=== PATIENT | male | born 1955 | race Caucasian/White ===

== ENCOUNTER 2016-05-07 19:49 | Inpatient (IN) | payer SELFPAY ==
[~2016-05-07] VITALS: Ht 180.3 cm; Wt 53.6 kg
--- NOTE | 2016-05-07 20:27 | PHYS DOC ---
Past Medical History Past Medical History: P.U.D. Additional Past Surgical Histo: for ulcer at age 20 Adult General Chief Complaint Chief Complaint: CHEST PAIN HPI HPI Patient is a 60 year old male who presents with chest pain. Patient was reportedly pulled over by police and then complained of chest pain. On arrival to ED patient reports he is no longer having chest pain. He has been having episodes of chest pain intermittently over the past year that he describes as a lower substernal aching pain. Also has been having episodes of lightheadedness and SOB, although not at this time. No clear mitigating factors. He has not taken anything for symptoms prior to arrival. Patient does admit to drinking 4- 5 beers today. He says he has not seen a doctor in 30 years. Review of Systems Review of Systems Constitutional: Intermittent lightheadedness (not at this time). Denies fever or chills Eyes: Denies change in visual acuity or eye pain HENT: Denies nasal congestion or sore throat Respiratory: Intermittent shortness of breath (not at this time) Cardiovascular: Intermittent chest pain (none at this time) GI: Denies abdominal pain, nausea, vomiting, bloody stools or diarrhea : Denies dysuria Musculoskeletal: Denies back pain or joint pain Integument: Denies rash or skin lesions Neurologic: Denies headache, focal weakness or sensory changes Current Medications Current Medications Current Medications Medications (Trade) Dose Ordered Sig/Polo Start Time Stop Time Status Last Admin Dose Admin Aspirin 324 mg 324 mg 1X ONCE 05/07/16 21:30 05/07/16 21:31 DC 05/07/16 21:14 324 MG Multivitamins/ Minerals/Folic Acid/Thiamine HCl/ Dextrose/Lactated Ringer's (Infuvite Adult/ Iv D5%-Lr) 1,011.2 ml @ 1,000 mls/ hr 1X ONCE 05/07/16 21:30 05/07/16 22:30 DC 05/07/16 21:15 1,000 MLS/HR Allergies Allergies Allergies Coded Allergies Type Severity Reaction Last Updated Verified No Known Drug Allergies 05/07/16 No Physical Exam Physical Exam Constitutional: Well developed, disheveled, poor hygiene, no acute distress, non -toxic appearance HENT: Normocephalic, atraumatic, bilateral external ears normal Eyes: EOMI, conjunctiva normal, no discharge Neck: Normal range of motion, no stridor Cardiovascular: Heart rate normal, regular rhythm, no murmur Lungs & Thorax: Bilateral breath sounds clear to auscultation Abdomen: Bowel sounds normal, soft, non-distended, no TTP Rectal: No gross blood Skin: Warm, dry, no erythema, no rash Extremities: No obvious deformity, no edema Neurologic: Alert and oriented X 3, no gross deficits noted Current Patient Data Vital Signs Vital Signs Date Time Temp Pulse Resp B/P Pulse Ox O2 Delivery O2 Flow Rate FiO2 05/07/16 21:40 62 24 111/58 97 Room Air 05/07/16 19:55 97.5 97.5 Lab Values Laboratory Tests Test 05/07/16 20:13 05/07/16 21:35 White Blood Count 6.8x10^3/uL (4.0-11.0) Red Blood Count 4.26x10^6/uL (4.30-5.70) L Hemoglobin 7.0g/dL (13.0-17.5) *L Hematocrit 25.0% (39.0-53.0) L Mean Corpuscular Volume 59fL (79-100) L Mean Corpuscular Hemoglobin 16pg (25-35) L Mean Corpuscular Hemoglobin Concent 28g/dL (31-37) L Red Cell Distribution Width 19.6% (11.5-14.5) H Platelet Count 240x10^3/uL (140-400) Neutrophils (%) (Auto) 49% (31-73) Lymphocytes (%) (Auto) 41% (24-48) Monocytes (%) (Auto) 7% (0-9) Eosinophils (%) (Auto) 2% (0-3) Basophils (%) (Auto) 1% (0-3) Neutrophils # (Auto) 3.3x10^3uL (1.8-7.7) Lymphocytes # (Auto) 2.8x10^3/uL (1.0-4.8) Monocytes # (Auto) 0.5x10^3/uL (0.0-1.1) Eosinophils # (Auto) 0.1x10^3/uL (0.0-0.7) Basophils # (Auto) 0.1x10^3/uL (0.0-0.2) Platelet Estimate Adequate (ADEQUATE) Hypochromasia Marked Poikilocytosis Slight Anisocytosis Slight Microcytosis Marked Tear Drop Cells Occ Ovalocytes Occ Prothrombin Time 14.1SEC (11.7-14.0) H Prothrombin Time INR 1.2 (0.8-1.1) H PTT 32SEC (24-38) Sodium Level 141mmol/L (136-145) Potassium Level 3.8mmol/L (3.5-5.1) Chloride Level 103mmol/L (98-107) Carbon Dioxide Level 26mmol/L (21-32) Anion Gap 12 (6-14) Blood Urea Nitrogen 11mg/dL (8-26) Creatinine 0.8mg/dL (0.7-1.3) Estimated GFR (Cockcroft-Gault) 99.3 Glucose Level 73mg/dL (70-99) Calcium Level 8.4mg/dL (8.5-10.1) L Total Bilirubin 0.5mg/dL (0.2-1.0) Direct Bilirubin 0.1mg/dL (0.0-0.2) Aspartate Amino Transferase (AST) 24U/L (15-37) Alanine Aminotransferase (ALT) 11U/L (16-63) L Alkaline Phosphatase 119U/L (46-116) H Troponin I Quantitative < 0.017ng/mL (0.000-0.055) Total Protein 7.6g/dL (6.4-8.2) Albumin 3.9g/dL (3.4-5.0) Stool Occult Blood Negative (NEG) Laboratory Tests 05/07/16 20:13 Laboratory Tests 05/07/16 20:13 EKG EKG EKG (my read): sinus rhythm, rate 59, normal axis, intervals wnl, nonspecific ST changes, LVH Radiology/Procedures Radiology/Procedures CXR (my read): No acute abnormality Course & Med Decision Making Course & Med Decision Making Pertinent Labs and Imaging studies reviewed. (See chart for details) Patient is 60 year old male who presents with chest pain. Will obtain EKG, CXR, labs to evaluate. Dose of ASA ordered. Nothing given for pain as he is not having pain at this time. EKG and CXR ok per my read. Labs notable for marked anemia; hgb 7.0, MCV 59. Discussed results with patient. As he has been intermittently symptomatic will go ahead and transfuse. I discussed this with patient who is agreeable; consent form signed and placed on chart. 2 units pRBCs ordered. Rectal exam performed, no gross blood, fecal occult negative. Discussed with Dr. Chen, will admit under her care for further evaluation and treatment. Dragon Disclaimer Dragon Disclaimer This electronic medical record was generated, in whole or in part, using a voice recognition dictation system. Departure Departure Impression: Primary Impression: Anemia Additional Impressions: Chest pain SOB (shortness of breath) Lightheaded Disposition: ADMITTED INPATIENT Admitting Physician: Diana Chen Condition: STABLE Problem Qualifiers MARLON KOVACS MD May 07, 2016 20:27
[2016-05-07 20:34] LABS: BASO # 0.1 x10^3/uL (0.0-0.2); BASO % 1 % (0-3); EOS % 2 % (0-3); LYMPH # 2.8 x10^3/uL (1.0-4.8); LYMPH % 41 % (24-48); MEAN CORPUSCULAR HEMOGLOBIN 16 pg (25-35); MEAN CORPUSCULAR HGB CONC 28 g/dL (31-37); MEAN CORPUSCULAR VOLUME 59 fL (79-100); MONO % 7 % (0-9); NEUT % 49 % (31-73); PLATELET COUNT 240 x10^3/uL (140-400); RED BLOOD COUNT 4.26 x10^6/uL (4.30-5.70); RED CELL DISTRIBUTION WIDTH 19.6 % (11.5-14.5); WHITE BLOOD COUNT 6.8 x10^3/uL (4.0-11.0)
[2016-05-07 20:46] LABS: CALCIUM 8.4 mg/dL (8.5-10.1); CREATININE 0.8 mg/dL (0.7-1.3); GFR 99.3; POTASSIUM 3.8 mmol/L (3.5-5.1)
[2016-05-07 20:51] LABS: ALBUMIN 3.9 g/dL (3.4-5.0); DIRECT BILIRUBIN 0.1 mg/dL (0.0-0.2); TOTAL BILIRUBIN 0.5 mg/dL (0.2-1.0); TOTAL PROTEIN 7.6 g/dL (6.4-8.2)
[2016-05-07 21:19] LABS: ANISOCYTOSIS SLIGHT; HYPOCHROMIA MARKED; MICROCYTOSIS MARKED; PLT ESTIMATE ADEQUATE (ADEQUATE); POIKILOCYTOSIS SLIGHT
[2016-05-07 21:20] LABS: OVALOCYTES OCC; TEAR DROP CELLS OCC
[2016-05-07] MEDS ORDERED: ASPIRIN 81 MG TAB.CHEW PO ONE (21:30)
[2016-05-07] MEDS ORDERED: MVI, ADULT NO.4 WITH VIT K 10 ML, FOLIC ACID 1 MG, THIAMINE 100 MG in IV DEXTROSE 5%-LA... IV ONE ×4 (21:30)
[2016-05-07 21:45] LABS: NEG OBC FOB NEG; POS OBC FOB POS
[2016-05-07 21:57] LABS: INR 1.2 (0.8-1.1); PROTHROMBIN TIME PATIENT 14.1 SEC (11.7-14.0)
[2016-05-07] MEDS ORDERED: FAMOTIDINE 20 MG/2 ML VIAL IVP ONE (22:00)
[2016-05-07] MEDS ORDERED: MORPHINE SULFATE 2 MG/ML DISP.SYRIN. IV PRN (22:15)
[2016-05-07] MEDS ORDERED: ONDANSETRON PF 4 MG/2 ML VIAL. IV PRN (22:15)
[2016-05-07] MEDS ORDERED: ACETAMINOPHEN 325 MG TABLET. PO PRN (22:15)
[2016-05-07 23:34] VITALS: BP 107/56
[2016-05-07 23:59] VITALS: BP 120/52
[2016-05-08] VITALS (14 sets, daily range): BP systolic 100–145; BP diastolic 51–85
--- NOTE | 2016-05-08 01:23 | ACF ---
Admission Forms Criteria ANEMIA, IRON DEFICIENCY OR UNSPECIFIED Clinical Indications for Inpatient Care (Place 'X' for any and all applicable criteria): Admission is indicated for ANY ONE of the following(1)(2)(3)(4)(5)(6)(7): [X] I. Inpatient admission required rather than observation care (Also use Anemia, Iron Deficiency or Unspecified: Observation Care guideline as appropriate) because of ANY ONE of the following: [] a) Hemodynamic instability that is severe or persistent [] b) Active bleeding that cannot be rapidly controlled [X] c) CVS symptoms (i.e., dyspnea, chest pain, heart failure) that are severe or persistent [] d) Neurologic symptoms (i.e., cognitive impairment, recurrent syncope or near syncope) that are severe or persistent [] e) Cardiac arrhythmias of immediate concern [] f) Acute peripheral ischemia (e.g., pulseless, cool, mottled, or cyanotic extremity) [] g) High-risk low platelet count [] h) Acute renal failure [] i) Ongoing transfusion for blood loss (greater than 2 units) [] j) IV fluid to replace significant ongoing (eg, >24 hours) losses (> 3 L/m2 per day) [] k) Pulmonary artery catheter monitoring [] l) Supplemental oxygen or respiratory treatments for over 24 hours that are performable only in acute inpatient setting [] m) Immediate inpatient surgery [X] n) Other condition, treatment or monitoring requiring inpatient admission [] II Active massive hemorrhage [] III. Active hemolysis with rapidly progressive anemia [A](6) Extended stay beyond goal length of stay may be needed for (17)(18) []a) Diagnosed cause of anemia requiring longer hospitalization (eg, active GI bleeding, immune hemolysis requiring electrophoresis, complications of malignancy requiring acute care []b) Continued emergent anemia indicators (23) []c) Transfusion reactions []d) Associated leukopenia or thrombocytopenia needing inpatient care []e) Active comorbidities (eg, renal failure, heart failure) The original [facility] Care Guidelines content created by [facility] Care Guidelines has been revised. The portions of the content which have been revised are identified through the use of italic text or in bold. [facility] Guidelines has neither reviewed nor approved the modified material. All other unmodified content is copyright [facility] Care Guidelines. Please see references footnoted in the original [facility] edition 2016 Admission Criteria Met?: Yes DEE BROOKS May 08, 2016 01:23
[2016-05-08 06:56] LABS: BASO # 0.1 x10^3/uL (0.0-0.2); BASO % 2 % (0-3); EOS % 1 % (0-3); HEMATOCRIT 29.1 % (39.0-53.0); HEMOGLOBIN 8.4 g/dL (13.0-17.5); LYMPH # 1.4 x10^3/uL (1.0-4.8); LYMPH % 19 % (24-48); MEAN CORPUSCULAR HEMOGLOBIN 18 pg (25-35); MEAN CORPUSCULAR HGB CONC 29 g/dL (31-37); MEAN CORPUSCULAR VOLUME 63 fL (79-100); MONO % 6 % (0-9); NEUT % 73 % (31-73); PLATELET COUNT 222 x10^3/uL (140-400); RED CELL DISTRIBUTION WIDTH 23.9 % (11.5-14.5); WHITE BLOOD COUNT 7.5 x10^3/uL (4.0-11.0)
[2016-05-08 07:02] LABS: CALCIUM 8.4 mg/dL (8.5-10.1); CREATININE 0.8 mg/dL (0.7-1.3); GFR 99.3; POTASSIUM 4.5 mmol/L (3.5-5.1)
--- NOTE | 2016-05-08 11:59 | RAD ---
PA and lateral chest radiographs 05/07/2016. Clinical History: Chest pain and difficulty breathing. PA and lateral digital radiographs of the chest were obtained. No previous studies are available for comparison. Surgical clips are seen in the region of the GE junction and left upper quadrant of the abdomen. The cardiac and mediastinal silhouettes are within normal limits in size and configuration. No pulmonary infiltrate is seen. No pleural effusion or pneumothorax is noted. The osseous structures are grossly intact. Impression: No radiographic evidence of active cardiopulmonary disease.
[2016-05-08 13:22] LABS: % SAT IRON 3 % (15-34); IRON,SERUM 16 ug/dL (65-175)
--- NOTE | 2016-05-08 14:51 | EKG ---
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
[2016-05-08] MEDS: NICOTINE 7MG PATCH. TD SCH (16:37)
[2016-05-08] MEDS: IRON SUCROSE COMPLEX 300 MG in IV NORMAL SALINE 250ML 250 ML IV SCH (16:38)
--- NOTE | 2016-05-08 18:39 | HP ---
ADMIT DATE: 05/08/2016 CHIEF COMPLAINT: Dizziness. HISTORY OF PRESENT ILLNESS: The patient is a 60-year-old gentleman without medical followup in the past 30 years, who became dizzy while driving. He pulled over and apparently was noted by the police who called EMS. He was brought to the Emergency Room. There, his hemoglobin was found to be at 7.0 with an MCV of 59. He was therefore admitted for severe symptomatic anemia. PAST MEDICAL HISTORY: None to his knowledge. FAMILY HISTORY: No GI pathology known in the family. Otherwise, family history also unknown. SOCIAL HISTORY: Lives by himself. 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 ALLERGIES: No known drug allergies. MEDICATIONS: None at home. REVIEW OF SYSTEMS: Essentially positive for dizziness. Had previous dizziness episodes, but never while driving, typically with rising. Denies any chest pain, shortness of breath or other symptoms and has never noticed any melena, hematochezia or abdominal pain. Rest of organ system review is negative. PHYSICAL EXAMINATION: VITAL SIGNS: From today show a blood pressure of 139/69, heart rate 56, respiratory rate at 18. He is afebrile. GENERAL: This is a 60-year-old gentleman appearing older than his stated age, cachectic. HEENT: Shows no scleral icterus. NECK: Supple. LUNGS: Clear to auscultation bilaterally. CARDIOVASCULAR: Regular rate and rhythm. ABDOMEN: Has positive bowel sounds, soft, nontender, without any organomegaly or masses. EXTREMITIES: Show no edema, no clubbing, no cyanosis. SKIN: Warm, soft and dry without any rash. LABORATORY DATA: CBC at admission with a WBC of 6.8, hemoglobin 7.0, MCV is 59 and platelets 240. Hemoglobin post-transfusion increased to 8.4. Chemistries with a BUN and creatinine of 12 and 0.8, normal electrolytes. Calcium at 8.4. Iron studies with an iron of 16, TIBC of 479 and ferritin of 4. Troponins negative x 2. IMAGING STUDIES: Chest x-ray in the Emergency Room shows no radiographic evidence of active cardiopulmonary disease. ASSESSMENT AND PLAN: The patient is a 60-year-old gentleman with severe iron deficiency anemia, most likely due to GI bleed. He has been transfused now. Clinically stable. A GI consult will be obtained for evaluation of at least upper GI tract. We will administer IV iron as well to get his iron levels up. We will hold off on DVT prophylaxis given suspicion for GI bleed. Stool occult blood in the ER was actually negative. We will start on H2 sanna for GI prophylaxis. SOLE MONTES MD DR: RITA/nts JOB#: [id number] / [id number] AGAPITO
--- NOTE | 2016-05-08 19:04 | PDOC2 ---
CONSULT Date of Consult Date of Consult DATE: 05/08/16 TIME: 18:51 Reason for Consult Reason for Consult: OFELIA Referring Physician Referring Physician: Dr. Riley Source Source: Chart review, Patient History of Present Illness Reason for Visit: 60 y/o male brought to ER for transient "chest pain". During evaluation anemia noted with microcytic indices. Subsequent labs show iron-deficiency. Patient reports occasional heartburn and less frequent "odynophagia". He has a history of PUD with perforated ulcer x 2 in his late teens. He underwent laparotomy and oversew for the first ulcer and ultimately second laparotomy with vagotomy and antrectomy; type of anastomosis not known to him. No GB, liver or pancreatic history. Smoker. Heavy drinker in the past; occasional now. Takes occasional Advil. No constipation, hematochezia nor melena. Occasional loose stools. Mentions RLQ "bulge" sometimes pc. No nausea or vomiting. Wt/ appetite stable. Knows of no GI family history. Prior EGD's for the ulcers; no endoscopy or colonoscopy since. Past Medical History Past Medical History No known chronic diseases. Past Surgical History Past Surgical History Laparotomy x 2 as mentioned above. Needed some debridement of Staph skin infection after one of the operations. Family History Family History Non-contributory. Social History ALCOHOL: occassional Current Problem List Problem List Problems Medical Problems: (1) Anemia Status: Acute (2) Anemia affecting Status: Acute (3) Chest pain Status: Acute (4) Lightheaded Status: Acute (5) SOB (shortness of breath) Status: Acute Current Medications Current Medications Current Medications Aspirin 324 mg 324 mg 1X ONCE PO Last administered on 05/07/16 21:14; Start at 21:30; Stop 05/07/16 at 21:31; Status DC Multivitamins/ Minerals/Folic Acid/Thiamine HCl/ Dextrose/Lactated Ringer's ( Infuvite Adult/ Iv D5%-Lr) 1,011.2 ml @ 1,000 mls/ hr 1X ONCE IV Last administered on 05/07/16 21:15; Start 05/07/16 at 21:30; Stop 05/07/16 at 22:30; Status DC Famotidine (Pepcid) 20 mg 1X ONCE IVP Last administered on 05/07/16 23:33; Start 05/07/16 at 22:00; Stop 05/07/16 at 22:01; Status DC Ondansetron HCl (Zofran) 4 mg PRN Q8HRS PRN IV NAUSEA/VOMITING; Start 05/07/16 at 22:15; Stop 05/08/16 at 22:14 Morphine Sulfate 2 mg PRN Q2HR PRN IV SEVERE PAIN; Start 05/07/16 at 22:15; Stop 05/08/16 at 22:14 Acetaminophen 650 mg 650 mg PRN Q4HRS PRN PO FEVER Last administered on 17:03; Start 05/07/16 at 22:15; Stop 05/08/16 at 22:14 Iron Sucrose/ Sodium Chloride (Venofer/Iv Sodium Chloride 0.9% 250ml) 265 ml @ 90 mls/hr Q12HR IV Last administered on 05/08/16 16:38; Start 05/08/16 at 15:00 ; Stop 05/09/16 at 11:57 Nicotine (Nicoderm Cq 7mg) 1 patch DAILY TD Last administered on 05/08/16 16:37 ; Start 05/08/16 at 15:00 Allergies Allergies: Coded Allergies: No Known Drug Allergies (Unverified , 05/07/16) ROS Review of System 10-point review otherwise negative. Physical Exam General: Alert, Oriented X3, Cooperative, No acute distress Lungs: Clear to auscultation Heart: Regular rate, Normal S1, Normal S2, No murmurs Abdomen: Normal bowel sounds, Soft, No tenderness, No hepatosplenomegaly, No masses, Other (healed upper midline and diagonal RLQ scars) Extremities: No cyanosis, No edema Skin: No significant lesion Neuro: Normal speech, Strength at 5/5 X4 ext, Normal tone, Sensation intact, Cranial nerves 3-12 NL, Reflexes 2+ Psych/Mental Status: Mental status NL, Mood NL MUSCULOSKELETAL: No deformity, No swelling Vitals VITALS Vital Signs Date Time Temp Pulse Resp B/P Pulse Ox O2 Delivery O2 Flow Rate FiO2 05/08/16 15:23 98.5 61 18 141/81 98 Room Air 98.5 Labs Labs Laboratory Tests Test 05/07/16 20:13 05/07/16 21:35 05/08/16 06:40 05/08/16 10:35 White Blood Count 6.8x10^3/uL (4.0-11.0) 7.5x10^3/uL (4.0-11.0) Red Blood Count 4.26x10^6/uL (4.30-5.70) 4.60x10^6/uL (4.30-5.70) Hemoglobin 7.0g/dL (13.0-17.5) 8.4g/dL (13.0-17.5) Hematocrit 25.0% (39.0-53.0) 29.1% (39.0-53.0) Mean Corpuscular Volume 59fL (79-100) 63fL (79-100) Mean Corpuscular Hemoglobin 16pg (25-35) 18pg (25-35) Mean Corpuscular Hemoglobin Concent 28g/dL (31-37) 29g/dL (31-37) Red Cell Distribution Width 19.6% (11.5-14.5) 23.9% (11.5-14.5) Platelet Count 240x10^3/uL (140-400) 222x10^3/uL (140-400) Neutrophils (%) (Auto) 49% (31-73) 73% (31-73) Lymphocytes (%) (Auto) 41% (24-48) 19% (24-48) Monocytes (%) (Auto) 7% (0-9) 6% (0-9) Eosinophils (%) (Auto) 2% (0-3) 1% (0-3) Basophils (%) (Auto) 1% (0-3) 2% (0-3) Neutrophils # (Auto) 3.3x10^3uL (1.8-7.7) 5.5x10^3uL (1.8-7.7) Lymphocytes # (Auto) 2.8x10^3/uL (1.0-4.8) 1.4x10^3/uL (1.0-4.8) Monocytes # (Auto) 0.5x10^3/uL (0.0-1.1) 0.4x10^3/uL (0.0-1.1) Eosinophils # (Auto) 0.1x10^3/uL (0.0-0.7) 0.1x10^3/uL (0.0-0.7) Basophils # (Auto) 0.1x10^3/uL (0.0-0.2) 0.1x10^3/uL (0.0-0.2) Platelet Estimate Adequate (ADEQUATE) Hypochromasia Marked Poikilocytosis Slight Anisocytosis Slight Microcytosis Marked Tear Drop Cells Occ Ovalocytes Occ Prothrombin Time 14.1SEC (11.7-14.0) Prothromb Time International Ratio 1.2 (0.8-1.1) Activated Partial Thromboplast Time 32SEC (24-38) Sodium Level 141mmol/L (136-145) 141mmol/L (136-145) Potassium Level 3.8mmol/L (3.5-5.1) 4.5mmol/L (3.5-5.1) Chloride Level 103mmol/L (98-107) 107mmol/L (98-107) Carbon Dioxide Level 26mmol/L (21-32) 26mmol/L (21-32) Anion Gap 12 (6-14) 8 (6-14) Blood Urea Nitrogen 11mg/dL (8-26) 12mg/dL (8-26) Creatinine 0.8mg/dL (0.7-1.3) 0.8mg/dL (0.7-1.3) Estimated GFR (Cockcroft-Gault) 99.3 99.3 Glucose Level 73mg/dL (70-99) 116mg/dL (70-99) Calcium Level 8.4mg/dL (8.5-10.1) 8.4mg/dL (8.5-10.1) Iron Level 16ug/dL (65-175) Total Iron Binding Capacity 479ug/dL (250-450) Iron Saturation 3% (15-34) Ferritin 4ng/mL (26-388) Total Bilirubin 0.5mg/dL (0.2-1.0) Direct Bilirubin 0.1mg/dL (0.0-0.2) Aspartate Amino Transf (AST/SGOT) 24U/L (15-37) Alanine Aminotransferase (ALT/SGPT) 11U/L (16-63) Alkaline Phosphatase 119U/L (46-116) Troponin I Quantitative < 0.017ng/mL (0.000-0.055) < 0.017ng/mL (0.000-0.055) < 0.017ng/mL (0.000-0.055) Total Protein 7.6g/dL (6.4-8.2) Albumin 3.9g/dL (3.4-5.0) Stool Occult Blood Negative (NEG) Laboratory Tests Test 05/07/16 20:13 05/07/16 21:35 05/08/16 06:40 05/08/16 10:35 White Blood Count 6.8x10^3/uL (4.0-11.0) 7.5x10^3/uL (4.0-11.0) Red Blood Count 4.26x10^6/uL (4.30-5.70) 4.60x10^6/uL (4.30-5.70) Hemoglobin 7.0g/dL (13.0-17.5) 8.4g/dL (13.0-17.5) Hematocrit 25.0% (39.0-53.0) 29.1% (39.0-53.0) Mean Corpuscular Volume 59fL (79-100) 63fL (79-100) Mean Corpuscular Hemoglobin 16pg (25-35) 18pg (25-35) Mean Corpuscular Hemoglobin Concent 28g/dL (31-37) 29g/dL (31-37) Red Cell Distribution Width 19.6% (11.5-14.5) 23.9% (11.5-14.5) Platelet Count 240x10^3/uL (140-400) 222x10^3/uL (140-400) Neutrophils (%) (Auto) 49% (31-73) 73% (31-73) Lymphocytes (%) (Auto) 41% (24-48) 19% (24-48) Monocytes (%) (Auto) 7% (0-9) 6% (0-9) Eosinophils (%) (Auto) 2% (0-3) 1% (0-3) Basophils (%) (Auto) 1% (0-3) 2% (0-3) Neutrophils # (Auto) 3.3x10^3uL (1.8-7.7) 5.5x10^3uL (1.8-7.7) Lymphocytes # (Auto) 2.8x10^3/uL (1.0-4.8) 1.4x10^3/uL (1.0-4.8) Monocytes # (Auto) 0.5x10^3/uL (0.0-1.1) 0.4x10^3/uL (0.0-1.1) Eosinophils # (Auto) 0.1x10^3/uL (0.0-0.7) 0.1x10^3/uL (0.0-0.7) Basophils # (Auto) 0.1x10^3/uL (0.0-0.2) 0.1x10^3/uL (0.0-0.2) Platelet Estimate Adequate (ADEQUATE) Hypochromasia Marked Poikilocytosis Slight Anisocytosis Slight Microcytosis Marked Tear Drop Cells Occ Ovalocytes Occ Prothrombin Time 14.1SEC (11.7-14.0) Prothromb Time International Ratio 1.2 (0.8-1.1) Activated Partial Thromboplast Time 32SEC (24-38) Sodium Level 141mmol/L (136-145) 141mmol/L (136-145) Potassium Level 3.8mmol/L (3.5-5.1) 4.5mmol/L (3.5-5.1) Chloride Level 103mmol/L (98-107) 107mmol/L (98-107) Carbon Dioxide Level 26mmol/L (21-32) 26mmol/L (21-32) Anion Gap 12 (6-14) 8 (6-14) Blood Urea Nitrogen 11mg/dL (8-26) 12mg/dL (8-26) Creatinine 0.8mg/dL (0.7-1.3) 0.8mg/dL (0.7-1.3) Estimated GFR (Cockcroft-Gault) 99.3 99.3 Glucose Level 73mg/dL (70-99) 116mg/dL (70-99) Calcium Level 8.4mg/dL (8.5-10.1) 8.4mg/dL (8.5-10.1) Iron Level 16ug/dL (65-175) Total Iron Binding Capacity 479ug/dL (250-450) Iron Saturation 3% (15-34) Ferritin 4ng/mL (26-388) Total Bilirubin 0.5mg/dL (0.2-1.0) Direct Bilirubin 0.1mg/dL (0.0-0.2) Aspartate Amino Transf (AST/SGOT) 24U/L (15-37) Alanine Aminotransferase (ALT/SGPT) 11U/L (16-63) Alkaline Phosphatase 119U/L (46-116) Troponin I Quantitative < 0.017ng/mL (0.000-0.055) < 0.017ng/mL (0.000-0.055) < 0.017ng/mL (0.000-0.055) Total Protein 7.6g/dL (6.4-8.2) Albumin 3.9g/dL (3.4-5.0) Stool Occult Blood Negative (NEG) Assessment/Plan Assessment/Plan IMP: 1. Iron deficiency anemia. Broad differential; hemoccult negative stool does not r/o colonic lesion. Conceivably could be from post-surgical anatomy if BII or Jose Alejandro-en-Y anastomosis as these exclude the duodenum from the nutrient stream (site of most avid iron absorption). 2. H/o complicated PUD, ultimately s/p ulcer surgery, type unclear. REC: 1. Transfuse if symptomatic. 2. Agree with IV iron. 3. Will discuss possible endoscopic evaluation with patient in AM. --other pending. Thank you for allowing me to assist in the care of this patient. Please call if questions. BRIAN GO MD May 08, 2016 19:04
[2016-05-09 03:36] VITALS: BP 141/73
[2016-05-09 07:00] VITALS: BP_SYST 76
[2016-05-09] MEDS: NICOTINE 7MG PATCH. TD SCH (09:09)
[2016-05-09] MEDS: IRON SUCROSE COMPLEX 300 MG in IV NORMAL SALINE 250ML 250 ML IV SCH (09:10)
[2016-05-09 11:00] VITALS: BP 118/73
--- NOTE | 2016-05-09 12:41 | PDOC ---
G I PROGRESS NOTE Subjective No complaints. Physical Exam Lungs clear. RRR Abdomen soft, not distended nor tender. Review of Relevant I have reviewed the following items betsey (where applicable) has been applied. Labs Laboratory Tests Test 05/07/16 20:13 05/07/16 21:35 05/08/16 06:40 05/08/16 10:35 White Blood Count 6.8x10^3/uL (4.0-11.0) 7.5x10^3/uL (4.0-11.0) Red Blood Count 4.26x10^6/uL (4.30-5.70) 4.60x10^6/uL (4.30-5.70) Hemoglobin 7.0g/dL (13.0-17.5) 8.4g/dL (13.0-17.5) Hematocrit 25.0% (39.0-53.0) 29.1% (39.0-53.0) Mean Corpuscular Volume 59fL (79-100) 63fL (79-100) Mean Corpuscular Hemoglobin 16pg (25-35) 18pg (25-35) Mean Corpuscular Hemoglobin Concent 28g/dL (31-37) 29g/dL (31-37) Red Cell Distribution Width 19.6% (11.5-14.5) 23.9% (11.5-14.5) Platelet Count 240x10^3/uL (140-400) 222x10^3/uL (140-400) Neutrophils (%) (Auto) 49% (31-73) 73% (31-73) Lymphocytes (%) (Auto) 41% (24-48) 19% (24-48) Monocytes (%) (Auto) 7% (0-9) 6% (0-9) Eosinophils (%) (Auto) 2% (0-3) 1% (0-3) Basophils (%) (Auto) 1% (0-3) 2% (0-3) Neutrophils # (Auto) 3.3x10^3uL (1.8-7.7) 5.5x10^3uL (1.8-7.7) Lymphocytes # (Auto) 2.8x10^3/uL (1.0-4.8) 1.4x10^3/uL (1.0-4.8) Monocytes # (Auto) 0.5x10^3/uL (0.0-1.1) 0.4x10^3/uL (0.0-1.1) Eosinophils # (Auto) 0.1x10^3/uL (0.0-0.7) 0.1x10^3/uL (0.0-0.7) Basophils # (Auto) 0.1x10^3/uL (0.0-0.2) 0.1x10^3/uL (0.0-0.2) Platelet Estimate Adequate (ADEQUATE) Hypochromasia Marked Poikilocytosis Slight Anisocytosis Slight Microcytosis Marked Tear Drop Cells Occ Ovalocytes Occ Prothrombin Time 14.1SEC (11.7-14.0) Prothromb Time International Ratio 1.2 (0.8-1.1) Activated Partial Thromboplast Time 32SEC (24-38) Sodium Level 141mmol/L (136-145) 141mmol/L (136-145) Potassium Level 3.8mmol/L (3.5-5.1) 4.5mmol/L (3.5-5.1) Chloride Level 103mmol/L (98-107) 107mmol/L (98-107) Carbon Dioxide Level 26mmol/L (21-32) 26mmol/L (21-32) Anion Gap 12 (6-14) 8 (6-14) Blood Urea Nitrogen 11mg/dL (8-26) 12mg/dL (8-26) Creatinine 0.8mg/dL (0.7-1.3) 0.8mg/dL (0.7-1.3) Estimated GFR (Cockcroft-Gault) 99.3 99.3 Glucose Level 73mg/dL (70-99) 116mg/dL (70-99) Calcium Level 8.4mg/dL (8.5-10.1) 8.4mg/dL (8.5-10.1) Iron Level 16ug/dL (65-175) Total Iron Binding Capacity 479ug/dL (250-450) Iron Saturation 3% (15-34) Ferritin 4ng/mL (26-388) Total Bilirubin 0.5mg/dL (0.2-1.0) Direct Bilirubin 0.1mg/dL (0.0-0.2) Aspartate Amino Transf (AST/SGOT) 24U/L (15-37) Alanine Aminotransferase (ALT/SGPT) 11U/L (16-63) Alkaline Phosphatase 119U/L (46-116) Troponin I Quantitative < 0.017ng/mL (0.000-0.055) < 0.017ng/mL (0.000-0.055) < 0.017ng/mL (0.000-0.055) Total Protein 7.6g/dL (6.4-8.2) Albumin 3.9g/dL (3.4-5.0) Stool Occult Blood Negative (NEG) Medications Current Medications Aspirin 324 mg 324 mg 1X ONCE PO Last administered on 05/07/16 21:14; Start at 21:30; Stop 05/07/16 at 21:31; Status DC Multivitamins/ Minerals/Folic Acid/Thiamine HCl/ Dextrose/Lactated Ringer's ( Infuvite Adult/ Iv D5%-Lr) 1,011.2 ml @ 1,000 mls/ hr 1X ONCE IV Last administered on 05/07/16 21:15; Start 05/07/16 at 21:30; Stop 05/07/16 at 22:30; Status DC Famotidine (Pepcid) 20 mg 1X ONCE IVP Last administered on 05/07/16 23:33; Start 05/07/16 at 22:00; Stop 05/07/16 at 22:01; Status DC Ondansetron HCl (Zofran) 4 mg PRN Q8HRS PRN IV NAUSEA/VOMITING; Start 05/07/16 at 22:15; Stop 05/08/16 at 22:14; Status DC Morphine Sulfate 2 mg PRN Q2HR PRN IV SEVERE PAIN; Start 05/07/16 at 22:15; Stop 05/08/16 at 22:14; Status DC Acetaminophen 650 mg 650 mg PRN Q4HRS PRN PO FEVER Last administered on 17:03; Start 05/07/16 at 22:15; Stop 05/08/16 at 22:14; Status DC Iron Sucrose/ Sodium Chloride (Venofer/Iv Sodium Chloride 0.9% 250ml) 265 ml @ 90 mls/hr Q12HR IV Last administered on 05/09/16 09:10; Start 05/08/16 at 15:00 ; Stop 05/09/16 at 11:57; Status DC Nicotine (Nicoderm Cq 7mg) 1 patch DAILY TD Last administered on 05/09/16 09:09 ; Start 05/08/16 at 15:00 Vitals/I & O Vital Sign - Last 24 Hours 05/08/16 05/08/16 05/08/16 05/08/16 15:23 19:00 20:00 23:41 Temp 98.5 100.4 97.6 98.5 100.4 97.6 Pulse 61 55 53 Resp 18 18 18 B/P 141/81 129/65 136/70 Pulse Ox 98 96 98 O2 Delivery Room Air Room Air Room Air Room Air 05/09/16 05/09/16 05/09/16 03:36 07:00 11:00 Temp 97.7 97.0 98.0 97.7 97.0 98.0 Pulse 60 86 59 Resp 18 22 22 B/P 141/73 76/ 118/73 Pulse Ox 97 96 O2 Delivery Room Air Room Air Room Air Intake and Output 05/08/16 05/08/16 05/09/16 15:00 23:00 07:00 Intake Total 480 ml 600 ml 265 ml Balance 480 ml 600 ml 265 ml Problem List Problems Medical Problems: (1) Anemia Status: Acute (2) Anemia affecting Status: Acute (3) Chest pain Status: Acute (4) Lightheaded Status: Acute (5) SOB (shortness of breath) Status: Acute Assessment OFELIA Plan of Care: Continue current Tx, Mgmt Plan of Care Note We discussed cifuentes-endoscopy and he's agreeable. Will schedule for tomorrow PM. BRIAN GO MD May 09, 2016 12:41
--- NOTE | 2016-05-09 14:13 | PDOC ---
PROGRESS NOTES Chief Complaint Chief Complaint Dizziness Symptomatic anemia ASSESSMENT AND PLAN: 1. Iron deficiency anemia: possibly 2/2 malabsorption with distant hx of bypass for ulcer. appreciate Dr Stone's input!! consideration for colonoscopy now s/p PRBC x1 and Venofer 900mg. with porposed mechanism of deficiency, may also be B12 deficient (although unlikely with MCV 59). check B12. 2. Prophylaxis: H2B Vitals Vitals Vital Signs Date Time Temp Pulse Resp B/P Pulse Ox O2 Delivery O2 Flow Rate FiO2 05/09/16 11:00 98.0 59 22 118/73 96 Room Air 98.0 Physical Exam General: Alert, Oriented X3, Cooperative, No acute distress Heart: Regular rate, No murmurs Abdomen: Normal bowel sounds, Soft, No tenderness, Other (healed upper midline and diagonal RLQ scars) Extremities: No cyanosis, No edema Skin: No significant lesion Review of Systems Review of Systems feels ok, no abd pain. though he was having procedure today SOLE MONTES MD May 09, 2016 14:13
[2016-05-09 15:00] VITALS: BP 124/70
[2016-05-09] MEDS ORDERED: BISACODYL 5 MG TABLET.DR. PO PRN (15:15)
[2016-05-09] MEDS ORDERED: MAGNESIUM CITRATE 296 ML SOLUTION. PO ONE (15:15)
[2016-05-09] MEDS ORDERED: POLYETHYLENE GLYCOL 3350 238 GM POWDER PO ONE (15:15)
[2016-05-09 19:00] VITALS: BP 116/74
[2016-05-09 23:15] VITALS: BP 125/60
[2016-05-10 03:20] VITALS: BP 135/74
[2016-05-10 07:50] VITALS: BP 120/78
[2016-05-10] MEDS: NICOTINE 7MG PATCH. TD SCH (09:05)
[2016-05-10] MEDS ORDERED: IRON150C3 PO (10:41)
[2016-05-10] MEDS ORDERED: MULT1TAB52 PO (10:41)
[2016-05-10] MEDS ORDERED: IRON POLYSACCHARIDE COMPLEX 150 MG CAPSULE PO SCH (11:00)
[2016-05-10 11:15] VITALS: BP 124/75
[2016-05-10] MEDS ORDERED: IV RINGERS,LACTATED 1000ML 1,000 ML IV SCH (13:15)
[2016-05-10] MEDS ORDERED: LIDOCAINE 2% PF Vial for OR 5 ML VIAL. ONE (13:29)
[2016-05-10] MEDS ORDERED: PROPOFOL 20 ML IV ONE ×2 (13:29)
[2016-05-10 15:05] VITALS: BP 138/72
[2016-05-10] MEDS ORDERED: FERR-26 PO (16:12)
[2016-05-10] MEDS ORDERED: PANT40TA3 PO (16:12)
[2016-05-10] MEDS ORDERED: PANTOPRAZOLE 40 MG TABLET. PO SCH (16:30)
[2016-05-10] MEDS ORDERED: FERROUS SULFATE ORAL 300 MG/5 ML SOLUTION. PO SCH (17:00)
--- NOTE | 2016-05-10 22:41 | PDOC3 ---
Discharge Summary Visit Information Date of Admission: May 07, 2016 Date of Discharge: May 10, 2016 Admitting Diagnosis: lightheaded, dyspnic Final Diagnosis tobaccoism underweight weakness, acquired Problems Medical Problems: (1) Anemia Status: Acute (2) Anemia a iron deficiency Status: Acute (3) Chest pain Status: Acute (4) Lightheaded Status: Acute (5) SOB (shortness of breath) Status: Acute Brief Hospital Course Allergies Allergies Coded Allergies Type Severity Reaction Last Updated Verified No Known Drug Allergies 05/10/16 No Vital Signs Vital Signs Date Time Temp Pulse Resp B/P Pulse Ox O2 Delivery O2 Flow Rate FiO2 05/10/16 15:05 51 20 138/72 100 Room Air 05/10/16 14:35 98.1 98.1 05/10/16 13:58 3 Lab Results Laboratory Tests Test 05/10/16 05:30 Vitamin B12 Level 350pg/mL (211-946) Laboratory Tests Test 05/10/16 05:30 Vitamin B12 Level 350pg/mL (211-946) Brief Hospital Course Mr. Figueroa is a 60 old male admitted, weakness and lethargy and dyspnea marked anemic, microcytic, iron def. found. IV iron X 4 doses, hgb better Upper and Lower GI, gastritis, chronic seen, pt started on PPI BID for DC. pt will need f/u PO iron and MVI at DC Discharge Information Condition at Discharge: Improved Follow Up: Weeks Disposition/Orders: D/C to Home Scheduled Ferrous Sulfate (Ferrous Sulfate) 1 TAB PO BID Iron Polysaccharides Complex (Ferrex 150) 150 MG PO DAILY Multivitamin (Multivitamins) 1 TAB PO DAILY Pantoprazole Sodium (Protonix) 1 TAB PO DAILY Patient Instructions Patient Instructions time > 30 min TJ GALLARDO MD May 10, 2016 22:41
== END 2016-05-10 17:10 | disposition home or self-care (01) | DRG 812 ==
LOC: ER 19:49 → 5 SOUTH 21:59
PROVIDERS: ADMIT Internal Medicine; ATTEND Internal Medicine
PROC: 30233N1 Transfusion of Nonautologous Red Blood Cells into Peripheral Vein, Percutaneous Approach (ICD-10-PCS; principal; 2016-05-08)
PROC: 0DJD8ZZ Inspection of Lower Intestinal Tract, Via Natural or Artificial Opening Endoscopic (ICD-10-PCS; 2016-05-08)
PROC: 0DJ08ZZ Inspection of Upper Intestinal Tract, Via Natural or Artificial Opening Endoscopic (ICD-10-PCS; 2016-05-08)
DX: D50.9 Iron deficiency anemia, unspecified (principal); R63.6 Underweight; F17.200 Nicotine dependence, unspecified, uncomplicated; Z79.82 Long term (current) use of aspirin; Z98.890 Other specified postprocedural states; Z87.11 Personal history of peptic ulcer disease; K57.30 Diverticulosis of large intestine without perforation or abscess without bleeding; K64.8 Other hemorrhoids; K26.9 Duodenal ulcer, unspecified as acute or chronic, without hemorrhage or perforation; K29.50 Unspecified chronic gastritis without bleeding
CPT/HCPCS: 36415; 71020; 80048; 80076; 82274; 82607; 82728; 83540; 83550; 84484; 85007; 85027; 85610; 85730; 86850; 86900; 86901; 86920; 93005; J1756; J2704; J7050; J7120; P9016; S0028; J7030

== ENCOUNTER 2020-04-28 07:56 | Outpatient (CLI) | payer MEDICAID ==
[~2020-04-28] VITALS: Ht 172.7 cm; Wt 62.6 kg
[2020-04-28] VITALS (14 sets, daily range): BP systolic 120–149; BP diastolic 68–89
[~2020-04-28 07:56] MED LIST: FERR325T14 PO; IRON150C15 PO; MULT-445 PO; PANT40TA77 PO
[2020-04-28 08:34] LABS: BASO # 0.1 x10^3/uL (0.0-0.2); BASO % 1 % (0-3); EOS # 0.1 x10^3/uL (0.0-0.7); EOS % 1 % (0-3); HEMATOCRIT 36.8 % (39.0-53.0); HEMOGLOBIN 11.8 g/dL (13.0-17.5); LYMPH # 1.9 x10^3/uL (1.0-4.8); LYMPH % 19 % (24-48); MEAN CORPUSCULAR HEMOGLOBIN 24 pg (25-35); MEAN CORPUSCULAR HGB CONC 32 g/dL (31-37); MEAN CORPUSCULAR VOLUME 74 fL (79-100); MONO # 0.9 x10^3/uL (0.0-1.1); MONO % 9 % (0-9); NEUT % 70 % (31-73); PLATELET COUNT 324 x10^3/uL (140-400); RED BLOOD COUNT 4.98 x10^6/uL (4.30-5.70); RED CELL DISTRIBUTION WIDTH 18.1 % (11.5-14.5)
[2020-04-28 08:42] LABS: CALCIUM 8.9 mg/dL (8.5-10.1); CREATININE 0.9 mg/dL (0.7-1.3); GFR 85.5; POTASSIUM 4.1 mmol/L (3.5-5.1)
[2020-04-28 08:47] LABS: PROTHROMBIN TIME PATIENT 13.6 SEC (11.7-14.0)
[2020-04-28 08:54] LABS: ALBUMIN 3.1 g/dL (3.4-5.0); ALBUMIN/GLOBULIN RATIO 0.7 (1.0-1.7); TOTAL BILIRUBIN 0.5 mg/dL (0.2-1.0); TOTAL PROTEIN 7.4 g/dL (6.4-8.2)
[2020-04-28] MEDS ORDERED: LIDOCAINE WITH 8.4% SOD BICARB 3 ML DISP.SYRIN. ONE (09:10)
[2020-04-28] MEDS ORDERED: MIDAZOLAM HCL/PF 2 MG/2 ML VIAL. ONE (09:15)
[2020-04-28] MEDS ORDERED: fentaNYL PF VIAL 100 MCG/2 ML VIAL ONE (09:15)
[2020-04-28] MEDS ORDERED: MIDAZOLAM HCL/PF 2 MG/2 ML VIAL. IV ONE (09:45)
[2020-04-28] MEDS ORDERED: fentaNYL PF VIAL 100 MCG/2 ML VIAL IV ONE (09:45)
[2020-04-28] MEDS ORDERED: LIDOCAINE WITH 8.4% SOD BICARB 3 ML DISP.SYRIN. IJ ONE (09:45)
--- NOTE | 2020-04-28 10:18 | PDOC ---
MODERATE SEDATION ASSESSMENT RISKS/ALTERNATIVES Risks/Alternatives Risks and alternatives of this type of sedation and procedure discussed with: RISK/ALTERNATIVES: Patient H & P ON CHART H & P H & P on chart and reviewed for co-morbid conditions and appropriate labs. H&P ON CHART: Yes STATUS PREG STATUS ASSESSED: Yes MEDS/ALLERGIES REVIEWED Meds/Allergies Reviewed Medications and Allergies including time and route of recently administered narcotics and sedatives. MEDS/ALLERGIES REVIEWED: Yes ASA RATING ASA RATING: II AIRWAY ASSESSMENT Airway Assessment Airway patency, oral function limitations, presence of caps, crowns, dentures, partials, and ability to extend neck assessed. AIRWAY ASSESSMENT: Yes MALLAMPATI SCORE MALLAMPATI SCORE: II PRE-SEDATION ASSESSMENT PRE-SEDATION ASSESSMENT: Yes LAUREL WHITE MD Apr 28, 2020 10:18
--- NOTE | 2020-04-28 10:19 | PDOC ---
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 No complications observed Disposition Disposition To [facility] LAUREL WHITE MD Apr 28, 2020 10:19
--- NOTE | 2020-04-28 10:31 | RAD ---
CT-guided biopsy right lower lobe pulmonary mass 04/28/2020 8:26 AM Indication: Right lung mass concerning for primary lung malignancy Discussion: The risks and benefits of the procedure, including but not limited to, bleeding and infection were discussed patient. Informed consent was obtained. The patient was brought to the CT scanner and placed in the prone position. A timeout procedure was performed. CT imaging redemonstrates a large mass in the right lower lobe. The mass measures up to 5.3 cm in diameter. The overlying soft tissues were prepped and draped using maximum sterile barrier technique. 1% lidocaine without epinephrine was administered for local anesthesia. Under intermittent CT guidance, 17-gauge needle was advanced into the mass. Core biopsies were obtained. The needle was removed. Repeat imaging demonstrates no significant pneumothorax or other immediate complication. Sterile dressings were applied. The procedure was performed under conscious sedation including continuous cardiopulmonary monitoring via dedicated sedation nurse. Sedation time: 15 minutes Impression: Successful CT-guided bone marrow biopsy of the right lower lobe pulmonary mass One or more of the following individualized dose reduction techniques were utilized for this examination: 1. Automated exposure control 2. Adjustment of the mA and/or kV according to patient size 3. Use of iterative reconstruction technique
--- NOTE | 2020-04-28 12:33 | NUR ---
Discharge Note: CRIS VILLEGAS Discharge instructions and discharge home medications reviewed with Patient and a copy given. All questions have been answered and understanding verbalized. The following instructions and handouts were given: incision care,adult moderate sedation,and lung biopsy Discontinued lines and drains: Peripheral IV intact. Patient discharged to Home or Self Care withFamily Membervia Wheelchair
--- NOTE | 2020-04-28 14:21 | RAD ---
Single view of the chest. 04/28/2020 11:56 AM Indication: Reason: post lung biopsy / Spl. Instructions: / History: Comparison: Chest CT March 10, 2020. Intraprocedural biopsy images December 27, 2020 Findings: There is no pneumothorax. Right lower lobe mass is redemonstrated partially obscured by the diaphragm. There is no pleural effusion. No acute appearing infiltrates. Heart size is normal. Posto perative changes in the epigastrium are similar to comparison exams. No acute osseous changes are not ed. IMPRESSION: No pneumothorax following biopsy of right lower lobe mass Electronically signed by: Primo Rocha MD (04/28/2020 2:18 PM) [id number]
== END 2020-04-28 12:30 | disposition home or self-care (01) ==
LOC: INTRAD 07:56
PROVIDERS: ATTEND Family Medicine
DX: R91.8 Other nonspecific abnormal finding of lung field (principal); C34.91 Malignant neoplasm of unspecified part of right bronchus or lung; M19.90 Unspecified osteoarthritis, unspecified site; F17.210 Nicotine dependence, cigarettes, uncomplicated; Z79.899 Other long term (current) drug therapy; Z72.89 Other problems related to lifestyle; Z98.890 Other specified postprocedural states
CPT/HCPCS: 32408; 36415; 71045; 80053; 85025; 85610; 88305; 88341; 88342; 99152; J2250; J3010; J3490